=== PATIENT | male | born 1965 | race Caucasian/White ===

== ENCOUNTER 2025-09-25 12:56 | Inpatient (IN) | payer MEDICAID ==
[~2025-09-25] VITALS: Ht 170.2 cm; Wt 69.1 kg
[2025-09-25 13:20] VITALS: O2SAT 100
[2025-09-25 14:21] LABS: BASOPHILS % 1.0 % (0.0-2.0); EOSINOPHILS % 5.6 % (0.0-5.0); HEMATOCRIT. 32.3 % (42.0-52.0); HEMOGLOBIN. 10.6 g/dL (14.0-18.0); LYMPHOCYTES % 29.2 % (20.0-50.0); MEAN PLATELET VOLUME 8.3 fl (7.4-10.4); MONOCYTES % 7.3 % (2.0-8.0); NEUTROPHILS % 56.9 % (40.0-76.0); PLATELET 206 x1000/uL (130-400); RED BLOOD CELL COUNT 3.44 mill/uL (4.7-6.1); RED CELL DISTRIBUTION WIDTH 15.1 % (11.6-14.6)
[2025-09-25 15:28] LABS: TROPONIN I HIGH SENSITIVITY < 4 ng/L (3.0-53)
[2025-09-25 15:35] LABS: CREATININE 1.6 mg/dL (0.6-1.3); UREA NITROGEN BLOOD 32 mg/dL (9-23)
[2025-09-25 15:36] LABS: PROTEIN TOTAL 7.1 g/dL (6.0-8.3)
[2025-09-25 15:37] LABS: ASPARTATE AMINOTRANSFERASE 77 IU/L (<34); BILIRUBIN DIRECT < 0.1 mg/dL (<=3.0); BILIRUBIN TOTAL 0.2 mg/dL (0.1-1.0)
[2025-09-25 16:23] LABS: BG BASE EXCESS -5.0 mmol/L (-2.0-3.0); BG CARBOXYHEMOGLOBIN 1.0 % (0.5-1.5); BG DEOXYHEMOGLOBIN 2.6 % (0.0-5.0); BG FRACTION INSPIRED OXYGEN 21; BG HCO3 ACT 20.3 mmol/L (21.0-28.0); BG METHEMOGLOBIN 0.1 % (0.5-1.5); BG OXYGEN SATURATION 97.4 % (94.0-98.0); BG OXYHEMOGLOBIN 96.3 % (94.0-98.0); BG PCO2 38.4 mmHg (35.0-48.0); BG PH 7.340 (7.350-7.450); BG PO2 95.5 mmHg (83.0-108.0); BG SAMPLE SITE RIGHT RADIAL; BG TOTAL HEMOGLOBIN 11.0 g/dL (13.5-17.5); BG VENT MODE ROOM AIR
[2025-09-25] MEDS ORDERED: DEXTROSE 50% WATER 50ML SYRINGE IV PRN (18:15)
[2025-09-25] MEDS ORDERED: GUAIFENESIN 200MG/10ML SUGAR FREE UDC PO PRN (18:15)
[2025-09-25] MEDS ORDERED: DOCUSATE SODIUM 100MG CAPSULE PO PRN (18:15)
[2025-09-25] MEDS ORDERED: IPRATROPIUM/ALBUTEROL 0.5-3(2.5)MG/3ML NEB HHN PRN (18:15)
[2025-09-25] MEDS ORDERED: NA PHOS,M-B/NA PHOS,DI-BA ENEMA 118ML PR PRN (18:15)
[2025-09-25] MEDS ORDERED: ACETAMINOPHEN 325MG TABLET PO PRN ×2 (18:15)
[2025-09-25] MEDS ORDERED: CLONIDINE 0.1MG TABLET PO PRN (18:15)
[2025-09-25] MEDS ORDERED: MAGNESIUM/ALUMINUM HYDROXIDE/SIMETHICONE 30ML UDC PO PRN (18:15)
[2025-09-25] MEDS ORDERED: ONDANSETRON HCL 4MG/2ML INJ IV PRN (18:15)
[2025-09-25] MEDS: INSULIN LISPRO 100 UNITS/ML SUBCUT SCH (18:35)
[2025-09-25 20:00] VITALS: BP 151/90; PULSE 79; RESP 20; TEMP 36.9; O2SAT 99
[2025-09-25] MEDS ORDERED: HYDRALAZINE 20MG/ML VIAL IV PRN (20:00)
[2025-09-25] MEDS: SODIUM CHLORIDE 0.9% 1,000 ML IV SCH (20:27)
[2025-09-25] MEDS ORDERED: MAGNESIUM 2 G PREMIX 50 ML IV ONE (20:45)
[2025-09-25 20:47] LABS: LACTATE DEHYDROGENASE 136 IU/L (120-246); TROPONIN I HIGH SENSITIVITY < 4 ng/L (3.0-53)
[2025-09-25 20:51] LABS: FOLIC ACID (FOLATE) SERUM > 20.00 ng/mL (>5.38)
[2025-09-25 20:52] LABS: VITAMIN B12 SERUM 501 pg/mL (211-911)
[2025-09-25 20:57] VITALS: BP 151/90; PULSE 79; RESP 20; TEMP 36.974
[2025-09-25] MEDS: BLOOD SUGAR DIAGNOSTIC STRIP TEST SCH (21:21)
[2025-09-25] MEDS: ATORVASTATIN CALCIUM 20MG TABLET PO SCH (21:21)
[2025-09-25] MEDS: SULFAMETHOXAZOLE/TRIMETHOPRIM 400/80MG TAB PO SCH (21:21)
[2025-09-25] MEDS: METRONIDAZOLE 500 MG PREMIX 100 ML IV SCH (21:22)
[2025-09-25 21:24] LABS: HEPATITIS A AB IGM NEGATIVE (Negative); HEPATITIS B CORE AB IGM NEGATIVE (Negative)
[2025-09-25 21:25] LABS: HEPATITIS C AB NON REACTIVE (Neg) (Negative)
[2025-09-26] VITALS: BP 148/78; PULSE 90; RESP 20; TEMP 36.5; O2SAT 98
[2025-09-26 04:00] VITALS: BP 103/47; PULSE 70; RESP 20; TEMP 36.6; O2SAT 99
[2025-09-26 08:00] VITALS: BP 131/53; PULSE 77; RESP 20; TEMP 36.6; O2SAT 99
[2025-09-26] MEDS: PANTOPRAZOLE SODIUM 40 MG/VIAL IV SCH (09:56)
[2025-09-26] MEDS: MULTIVITAMINS,THER W-MINERALS TABLET PO SCH (09:57)
[2025-09-26 12:11] LABS: BASOPHILS % 1.0 % (0.0-2.0); EOSINOPHILS % 6.4 % (0.0-5.0); HEMATOCRIT. 33.8 % (42.0-52.0); HEMOGLOBIN. 11.2 g/dL (14.0-18.0); LYMPHOCYTES % 19.6 % (20.0-50.0); MEAN PLATELET VOLUME 8.4 fl (7.4-10.4); MONOCYTES % 6.1 % (2.0-8.0); NEUTROPHILS % 66.9 % (40.0-76.0); PLATELET 202 x1000/uL (130-400); RED BLOOD CELL COUNT 3.61 mill/uL (4.7-6.1); RED CELL DISTRIBUTION WIDTH 14.8 % (11.6-14.6)
[2025-09-26 12:30] LABS: CREATININE 1.5 mg/dL (0.6-1.3); TRIGLYCERIDE 169.0 mg/dL (0-150); UREA NITROGEN BLOOD 29.0 mg/dL (9-23)
[2025-09-26 12:30] LABS: PROTEIN TOTAL 7.2 g/dL (6.0-8.3)
[2025-09-26 12:31] LABS: LDL CHOLESTEROL 61.0 mg/dL (5-100)
[2025-09-26 12:32] LABS: ASPARTATE AMINOTRANSFERASE 72 IU/L (<34); BILIRUBIN DIRECT < 0.1 mg/dL (<=3.0); BILIRUBIN TOTAL 0.2 mg/dL (0.1-1.0)
[2025-09-26 16:00] VITALS: BP 135/61; PULSE 75; RESP 20; TEMP 36.7; O2SAT 100
[2025-09-26 19:59] VITALS: BP 126/71; PULSE 76; RESP 20; TEMP 36.4; O2SAT 100
[2025-09-26 20:29] LABS: CLARITY URINE CLEAR (CLEAR); COLOR URINE YELLOW (YELLOW); GLUCOSE URINE NEGATIVE (NEGATIVE); KETONES URINE NEGATIVE (NEGATIVE); LEUKOCYTE ESTERASE URINE NEGATIVE (NEGATIVE); NITRITE URINE NEGATIVE (NEGATIVE); OCCULT BLOOD URINE NEGATIVE (NEGATIVE); PH URINE 5.5 (4.5-8.0); PROTEIN URINE NEGATIVE (NEGATIVE); SPECIFIC GRAVITY URINE 1.013 (1.005-1.030); UROBILINOGEN URINE 0.2 E.U./dL (0.2-1.0)
[2025-09-26 20:32] LABS: *AMPHETAMINES SCREEN URINE NEGATIVE (NEGATIVE); *BARBITURATES SCREEN URINE NEGATIVE (NEGATIVE); *BENZODIAZEPINES SCREEN URINE NEGATIVE (NEGATIVE); *COCAINE SCREEN URINE NEGATIVE (NEGATIVE); METHADONE URINE SCREEN NEGATIVE (NEGATIVE)
[2025-09-26 20:33] LABS: CANNABINOID URINE SCREEN NEGATIVE (NEGATIVE); ECSTASY MDMA SCREEN URINE NEGATIVE (NEGATIVE); OPIATES URINE SCREEN NEGATIVE (NEGATIVE); PHENCYCLIDINE URINE SCREEN NEGATIVE (NEGATIVE)
[2025-09-27] VITALS: BP 96/55; PULSE 65; RESP 18; TEMP 36.3; O2SAT 99
[2025-09-27 03:45] VITALS: BP 111/59; PULSE 73; RESP 18; TEMP 36.4; O2SAT 100
[2025-09-27 08:00] VITALS: BP 87/45; PULSE 67; RESP 18; TEMP 36; O2SAT 99
[2025-09-27 12:00] VITALS: BP 134/68; PULSE 67; RESP 18; TEMP 36.1; O2SAT 100
[2025-09-27 16:00] VITALS: BP 120/60; PULSE 64; RESP 18; TEMP 36.1; O2SAT 99
[2025-09-27] MEDS: CHOLESTYRAMINE/SUCROSE 4G POWDER PACKET PO SCH (17:47)
[2025-09-27 20:00] VITALS: BP 126/68; PULSE 75; RESP 18; TEMP 36.4; O2SAT 100
[2025-09-27] MEDS: PSYLLIUM SEED PACKET PO SCH (21:14)
[2025-09-27] MEDS: LOPERAMIDE HCL 2MG CAPSULE PO SCH (21:14)
[2025-09-28] VITALS (7 sets, daily range): BP systolic 95–156; BP diastolic 49–78; PULSE 62–86; RESP 18–20; TEMP 36.3–37.4; O2SAT 97–100
[2025-09-28] MEDS: LACTOBACILLUS RHAMNOSUS GG CAP PO SCH ×2 (09:00→22:14)
[2025-09-28 13:11] LABS: ANTI-MYELOPEROXIDASE AB < 0.2 units (0.0-0.9); ANTI-PROTEINASE 3 ABS < 0.2 units (0.0-0.9)
[2025-09-28] MEDS: LOPERAMIDE HCL 2MG CAPSULE PO SCH (18:37)
[2025-09-29] VITALS: BP 119/52; PULSE 74; RESP 18; TEMP 36.4; O2SAT 100
[2025-09-29] MEDS: MELATONIN 3MG TABLET PO NR (01:55)
[2025-09-29 04:00] VITALS: BP 87/48; PULSE 62; RESP 18; TEMP 36.9; O2SAT 100
[2025-09-29 08:00] VITALS: BP 135/79; PULSE 80; RESP 18; TEMP 36.6; O2SAT 99
[2025-09-29 12:00] VITALS: BP 92/49; PULSE 70; RESP 20; TEMP 36.2; O2SAT 98
[2025-09-29 16:00] VITALS: BP 130/60; PULSE 73; RESP 18; TEMP 36.2; O2SAT 99
[2025-09-29 20:01] VITALS: BP 91/49; PULSE 70; RESP 19; TEMP 36.1; O2SAT 97
[2025-09-30] VITALS: BP 101/52; PULSE 68; RESP 18; TEMP 36.1; O2SAT 98
[2025-09-30 04:00] VITALS: BP 89/46; PULSE 61; RESP 19; TEMP 36.3; O2SAT 98
[2025-09-30 08:00] VITALS: BP 88/42; PULSE 64; RESP 18; TEMP 36.1; O2SAT 97
[2025-09-30 12:00] VITALS: BP 100/50; PULSE 67; RESP 20; TEMP 36.3; O2SAT 98
[2025-09-30 13:10] LABS: ATYPICAL P-ANCA <1:20 titer (Neg:<1:20); CYTOPLASMIC C-ANCA <1:20 titer (Neg:<1:20); PERINUCLEAR P-ANCA <1:20 titer (Neg:<1:20)
[2025-09-30] MEDS ORDERED: IMOD PO (13:40)
[2025-09-30] MEDS ORDERED: LACT1CAP77 PO (13:40)
[2025-09-30] MEDS ORDERED: ATOR20TA PO (13:40)
[2025-09-30] MEDS ORDERED: METF-414 MT (13:41)
[2025-09-30 16:00] VITALS: BP 101/52; PULSE 69; RESP 18; TEMP 36.3; O2SAT 99
[2025-09-30 20:00] VITALS: BP 95/61; PULSE 67; RESP 18; TEMP 36.6; O2SAT 100
[2025-10-01] VITALS: BP 113/56; PULSE 79; RESP 18; TEMP 36.9; O2SAT 98
[2025-10-01 04:00] VITALS: BP_SYST 136; BP_SYST 93; BP_DIAS 50; BP_DIAS 67; PULSE 65; PULSE 72; RESP 18; RESP 20; TEMP 36.8; TEMP 37.2; O2SAT 96; O2SAT 98
[2025-10-01 08:33] VITALS: BP 103/58; PULSE 64; TEMP 36.5
[2025-10-01 12:00] VITALS: BP 102/58; PULSE 66; TEMP 36.8
[2025-10-01 16:00] VITALS: BP 109/66; PULSE 66; TEMP 36.8
[2025-10-01 20:00] VITALS: BP 102/59; PULSE 67; TEMP 36
[2025-10-02] VITALS: BP 99/55; PULSE 64; RESP 18; TEMP 36.1; O2SAT 99
[2025-10-02 04:00] VITALS: BP 92/55; PULSE 67; RESP 16; TEMP 36.1; O2SAT 99
[2025-10-02 07:48] VITALS: BP 94/57; PULSE 64; RESP 20; TEMP 36.6; O2SAT 98
[2025-10-02 12:00] VITALS: BP 104/62; PULSE 77; RESP 20; TEMP 36.6; O2SAT 98
[2025-10-02 16:00] VITALS: BP 107/63; PULSE 72; RESP 20; TEMP 37.2; O2SAT 98
[2025-10-02 20:25] VITALS: BP 130/73; PULSE 77; RESP 18; TEMP 36.3; O2SAT 100
[2025-10-02] MEDS: MELATONIN 3MG TABLET PO PRN (21:06)
[2025-10-03] VITALS: BP 93/58; PULSE 63; RESP 19; TEMP 36.5; O2SAT 100
[2025-10-03 04:00] VITALS: BP 96/58; PULSE 57; RESP 19; TEMP 36.4; O2SAT 100
[2025-10-03 08:00] VITALS: BP 110/50; PULSE 67; RESP 17; TEMP 36.4; O2SAT 99
[2025-10-03 11:45] VITALS: BP 110/50; PULSE 67; RESP 17; TEMP 97.5
[2025-10-03 12:00] VITALS: BP 92/53; PULSE 70; RESP 19; TEMP 36.7; O2SAT 100
[2025-10-09 17:07] LABS: FECAL FAT NEUTRAL. Normal (.); FECAL FAT TOTAL. Normal (.)
[2025-10-10 14:11] LABS: OVA & PARASITE EXAM Final report (.)
== END 2025-10-03 13:20 | disposition home or self-care (01) | DRG 142 ==
LOC: ER 12:56 → 6WST 16:43 → EDBEDREQTM 16:45 → EDBEDREQ 16:45 → ENRESERV 16:57 → MICUSO 17:31 → 7WST 20:53
PROVIDERS: ADMIT Internal Medicine; ATTEND Internal Medicine
DX: J84.10 Pulmonary fibrosis, unspecified (principal); M30.1 Polyarteritis with lung involvement [Churg-Strauss]; K90.9 Intestinal malabsorption, unspecified; Z59.01 Sheltered homelessness; D64.9 Anemia, unspecified; E11.9 Type 2 diabetes mellitus without complications; E53.8 Deficiency of other specified B group vitamins; E78.5 Hyperlipidemia, unspecified; I10 Essential (primary) hypertension; R05.3 Chronic cough; E83.42 Hypomagnesemia; K52.9 Noninfective gastroenteritis and colitis, unspecified; Z60.3 Acculturation difficulty; Z86.11 Personal history of tuberculosis; Z79.899 Other long term (current) drug therapy; Z79.84 Long term (current) use of oral hypoglycemic drugs; Z78.9 Other specified health status; Z79.4 Long term (current) use of insulin
CPT/HCPCS: 36415; 36600; 71045; 71250; 74176; 80048; 80061; 80076; 80305; 81003; 82270; 82375; 82550; 82607; 82705; 82728; 82746; 82805; 82962; 83036; 83520; 83540; 83550; 83605; 83615; 83735; 84145; 84443; 84484; 85025; 85651; 86256; 86705; 86709; 87015; 87045; 87070; 87116; 87149; 87153; 87177; 87209; 87328; 87340; 87427; 87449; 87556; 89055; 93005; 93970; 99291; A4615; J1815; J2470; J3490; J7030